=== PATIENT | male | born 1995 | race Caucasian/White ===

== ENCOUNTER 2017-09-24 21:45 | Emergency (ER) | payer MEDICAID, SELFPAY ==
[2017-09-24 21:46] VITALS: BP 156/98; PULSE 104; RESP 16; TEMP 36.4; O2SAT 96; BMI 31.9
--- NOTE | 2017-09-24 22:52 | NURSING ---
PTS NAME WAS CALLED MULTIPLE TIMES WITH NO RESPONSE. PT NO LONGER IN WAITING ROOM OR HALLWAY AREA
== END 2017-09-24 23:36 | disposition left against medical advice (07) ==
LOC: ED 23:34
PROVIDERS: Emergency Provider Emergency Medicine; Family Provider Family Medicine; PCP Family Medicine
DX: R69 Illness, unspecified (principal)

== ENCOUNTER 2017-10-06 20:59 | Emergency (ER) | payer MEDICAID, SELFPAY ==
[2017-10-06 21:00] VITALS: BP 143/95; PULSE 104; RESP 15; TEMP 36.6; BMI 31.9
--- NOTE | 2017-10-06 21:24 | ED.DCSUM_ITS ---
- ER Visit Summary Date of Service: 10/06/17 Chief Complaint: Dental pain History of Present Illness: The patient is a 22 M presents to the emergency department with dental pain. Patient had wisdom tooth extraction a few days ago. He states that he took his Vicodin as prescribed but is still having pain. He denies any trouble speaking or swallowing. He denies any fevers or chills. He cannot be seen again until Sunday. Physical Examination: No evidence of Merlin angina. He has no evidence of dry socket. Posterior oropharynx is widely patent. There is no abscess. Gums are nontender. Test Results: [] Emergency Department Course and Treatment: Patient has postoperative dental pain. There is no focal abscess or Merlin angina. I did review his OARRS ports. The patient be given 2 days of analgesics. He will be discharged home. Treatment Plan: [] Disposition: Charge Impression: Postoperative dental pain This note was generated with Intelligent Fingerprinting dictation software. It may contain incorrect words, spelling, and punctuation that were not noted in review of the chart prior to signing ED Disposition - Plan for ED Patient: Disposition: Home or Assisted Living Chief Complaint: Dental Instructions: ED Tooth Pain Prescriptions: Oxycodone HCl/Acetaminophen [Percocet 5/325] 1 tab PO Q6H PRN PRN 3 Days #8 tab PRN Reason: Pain Referrals: Cecilio Waldrop III, MD [Primary Care Provider] -
[2017-10-06 21:33] VITALS: BP 143/95; PULSE 104; RESP 15
== END 2017-10-06 21:34 | disposition home or self-care (01) ==
LOC: ED 21:27
PROVIDERS: Emergency Provider Emergency Medicine; Family Provider Family Medicine; PCP Family Medicine
DX: K08.89 Other specified disorders of teeth and supporting structures (principal); G89.18 Other acute postprocedural pain; F25.9 Schizoaffective disorder, unspecified
CPT/HCPCS: 99282

== ENCOUNTER 2017-10-08 20:03 | Emergency (ER) | payer MEDICAID, SELFPAY ==
[2017-10-08 20:04] VITALS: BP 141/84; PULSE 84; RESP 18; TEMP 36.8; O2SAT 97; BMI 33.5
--- NOTE | 2017-10-08 21:09 | ED.VISSUMM ---
- ER Visit Summary Date of Service: 10/08/17 Chief Complaint: Dental pain History of Present Illness: The patient is a 22 M who is postop day 5 from bilateral upper and lower wisdom teeth extraction. This is done by Dr. Mcclure at the [facility]. He was originally taking [place] but it did not help his pain. He was seen in the emergency room on Sunday given a prescription for Percocet he states that did not help his pain so today he left the message and did not get a call back so he comes to the emergency department tonight at 2100 looking for pain control. Plan is to go to the clinic tomorrow Physical Examination: Afebrile vital signs are stable Gen: Well-nourished well-developed Head: Normocephalic atraumatic Eyes: Perrl EOMI ENT: TMs clear no rhinorrhea moist mucous membranes no evidence of dry socket. There is no obvious abscess. No facial swelling. Neck: Supple no lymphadenopathy no JVD nontender CVS: Regular rate rhythm no murmurs normal S1-S2 Respiratory: No distress clear to auscultation bilaterally chest nontender Abdomen: Soft nontender nondistended normal bowel sounds no masses Back: Nontender Extremity: Nontender no edema Skin: Normal color no rash Neuro: alert orientated ?3 CN II-XII intact normal strength sensation reflexes gait cerebellar Psych: Patient angry and cursing Emergency Department Course and Treatment: Patient will be given a dose of Toradol. He is to use anti-inflammatories at home as it is clear that hydrocodone and oxycodone (narcotics) is not able to control his pain. He is to follow-up with [facility] as soon as possible. Impression: 1. Dental pain status post extraction This note was generated with Babelverse dictation software. It may contain incorrect words, spelling, and punctuation that were not noted in review of the chart prior to signing ED Disposition - Plan for ED Patient: Disposition: Home or Assisted Living Chief Complaint: Dental Instructions: [place] [facility] Referrals: Cecilio Waldrop III, MD [Primary Care Provider] - Bernarda Cook [NON-STAFF] - (as soon as possible)
[2017-10-08] MEDS: Ketorolac 60 MG/2 ML Vial IM (21:44)
[2017-10-08 22:14] VITALS: RESP 20
== END 2017-10-08 22:14 | disposition home or self-care (01) ==
PROVIDERS: Emergency Provider Emergency Medicine; Family Provider Family Medicine; PCP Family Medicine
DX: K08.89 Other specified disorders of teeth and supporting structures (principal); G89.18 Other acute postprocedural pain; F20.9 Schizophrenia, unspecified
CPT/HCPCS: 96372; 99282

== ENCOUNTER 2017-11-28 19:20 | Emergency (ER) | payer MEDICAID, SELFPAY ==
[2017-11-28 19:22] VITALS: BP 147/87; PULSE 81; RESP 16; TEMP 36.6; O2SAT 100; BMI 36.3
[2017-11-28 19:35] VITALS: BP 140/70; PULSE 75; RESP 14; O2SAT 98
--- NOTE | 2017-11-28 19:36 | ED.DCSUM_ITS ---
- ER Visit Summary Date of Service: 11/28/17 Chief Complaint: Back pain History of Present Illness: The patient is a 22 M who presents with back pain. It began earlier today. He complains of lower back pain which radiates down both legs. His pain is worse with bending. He does not recall any fall or injury. He denies any numbness tingling fever abdominal pain urinary retention or fecal incontinence. He took ibuprofen without relief. No fevers or history of IV drug abuse. Physical Examination: Afebrile vitals are stable Heart regular Lungs clear Abdomen soft Back has no reproducible tenderness normal inspection Normal strength and sensation of the lower extremities with 5 out of 5 dorsiflexion, plantarflexion, extensor hallucis longus, brisk capillary refill, normal sensation to light touch Test Results: Not indicated Emergency Department Course and Treatment: Patient was given prescriptions for naproxen and Flexeril. He was advised on supportive care. He understands to return for new or worsening symptoms and was instructed on specific signs and symptoms to monitor for. Treatment Plan: [] Disposition: Discharge Impression: Lumbosacral strain Lumbar radiculopathy This note was generated with [employer] dictation software. It may contain incorrect words, spelling, and punctuation that were not noted in review of the chart prior to signing ED Disposition - Plan for ED Patient: Chief Complaint: Back Referrals: Cecilio Waldrop III, MD [Primary Care Provider] -
--- NOTE | 2017-11-28 19:36 | ED.DEP ---
ED Disposition - Plan for ED Patient: Chief Complaint: Back Instructions: ED Sprain Strain Lumbar, ED Sciatica Prescriptions: Naproxen [Naprosyn] 500 mg PO BID #20 tab Cyclobenzaprine [Flexeril] 10 mg PO TID PRN #20 tab PRN Reason: Muscle Spasm Referrals: Cecilio Waldrop III, MD [Primary Care Provider] -
== END 2017-11-28 19:52 | disposition home or self-care (01) ==
PROVIDERS: Emergency Provider Emergency Medicine; Family Provider Family Medicine; PCP Family Medicine
DX: S39.012A Strain of muscle, fascia and tendon of lower back, initial encounter (principal); M54.16 Radiculopathy, lumbar region; X58.XXXA Exposure to other specified factors, initial encounter; Y93.9 Activity, unspecified; Y92.89 Other specified places as the place of occurrence of the external cause; F20.9 Schizophrenia, unspecified
CPT/HCPCS: 99282

== ENCOUNTER 2017-12-02 21:49 | Emergency (ER) | payer MEDICAID, SELFPAY ==
[2017-12-02 21:49] VITALS: BP 195/95; PULSE 94; RESP 14; TEMP 35.5; O2SAT 98; BMI 33.4
--- NOTE | 2017-12-02 22:20 | ED.DCSUM_ITS ---
- ER Visit Summary Date of Service: 12/02/17 Chief Complaint: [] Shoulder pain History of Present Illness: The patient is a 22 M [] complaining of left shoulder pain after lifting a sofa for a friend who is moving. Patient denies any injury. Reports several hours later had some pain in the scapular region. He reports he is here to make sure I am okay to go to work tomorrow. Denies any other complaints at this time. Physical Examination: [] Afebrile, vital signs stable. There is mild discomfort with range of motion of the left upper extremity in the left scapula. There is no discomfort over the left deltoid. Patient is neurovascularly intact distally throughout the left upper extremity. There is no gross deformity to the scapula. Test Results: [] None. Emergency Department Course and Treatment: [] Patient had a very benign presentation and did not warrant x-rays. He was offered a shot of Toradol and declined. He reports he will use NSAIDs at home and apply ice. Treatment Plan: [] Follow-up with PCP. Disposition: [] Discharge, stable. Impression: [] Scapula strain This note was generated with [employer] dictation software. It may contain incorrect words, spelling, and punctuation that were not noted in review of the chart prior to signing ED Disposition - Plan for ED Patient: Chief Complaint: Upper Extremity Injury Referrals: Cecilio Waldrop III, MD [Primary Care Provider] -
--- NOTE | 2017-12-02 22:20 | ED.DEP ---
ED Disposition - Plan for ED Patient: Disposition: Home or Assisted Living Chief Complaint: Upper Extremity Injury Instructions: ED Sprain Shoulder Referrals: Cecilio Waldrop III, MD [Primary Care Provider] -
== END 2017-12-02 22:47 | disposition home or self-care (01) ==
PROVIDERS: Emergency Provider Emergency Medicine; Family Provider Family Medicine; PCP Family Medicine
DX: S43.82XA Sprain of other specified parts of left shoulder girdle, initial encounter (principal); X50.0XXA Overexertion from strenuous movement or load, initial encounter; Y93.89 Activity, other specified; Y92.9 Unspecified place or not applicable; Y99.8 Other external cause status; F20.9 Schizophrenia, unspecified; Z72.0 Tobacco use
CPT/HCPCS: 99282

== ENCOUNTER 2018-01-15 00:49 | Emergency (ER) | payer MEDICAID, SELFPAY ==
[2018-01-15 00:50] VITALS: BP 147/86; PULSE 87; RESP 17; TEMP 37.6; O2SAT 97; BMI 33.4
--- NOTE | 2018-01-15 01:26 | ED.VISSUMM ---
- ER Visit Summary Date of Service: 01/15/18 Chief Complaint: [] Suicidal thoughts History of Present Illness: The patient is a 22 M stated he has been getting fluids fleeting suicidal thoughts for last week. He lives with his parents and recently moved back in with him with his fianc?e. He thinks is all situational factors. He has chronic mild depression. He does not have any plan to hurt himself. He is on Abilify. He saw a psychiatrist 3 weeks ago. He called the crisis center [facility] when he was talking with his fianc?e about it and they did not slate picker so he came in. He has overdosed remotely 2014 and is remorseful about that. He has no plan to hurt himself and states he wants to live for his fianc?e and child. Physical Examination: [] Vital signs reviewed General: Well-nourished well-developed Head: Normocephalic atraumatic Eyes: Pupils equal round and reactive to light extraocular movements intact ENT: TMs clear no hemotympanum no trauma Neck: Nontender full range of motion Cardiovascular: Regular rate rhythm no murmurs normal S1-S2 Respiratory: No distress clear to auscultation bilaterally chest nontender Abdomen: Soft nontender nondistended normal bowel sounds no masses Back: Nontender no CVA tenderness Extremities: Nontender active range of motion ?4 extremities no trauma Skin: Normal color no trauma Neuro alert oriented cranial nerves II through XII intact normal strength sensation reflexes Test Results: [] Emergency Department Course and Treatment: [] I had a long talk with the patient and his fianc?e. He does not think he would actually do anything to hurt himself. His fianc?e and him feel that he is safe. They do not want to be admitted. Therefore I will not talk to the crisis counselor and bring them in the middle the night. He is can call psychiatrist tomorrow. He will return if his thoughts worsen or he has a plan and thinks he might hurt himself. Treatment Plan: [] Disposition: [] Impression: [] Fleeting suicidal thoughts This note was generated with Little1ation software. It may contain incorrect words, spelling, and punctuation that were not noted in review of the chart prior to signing ED Disposition - Plan for ED Patient: Chief Complaint: Suicidal Referrals: Cecilio Waldrop III, MD [Primary Care Provider] -
--- NOTE | 2018-01-15 01:28 | ED.DEP ---
ED Disposition - Plan for ED Patient: Disposition: Home or Assisted Living Chief Complaint: Suicidal Instructions: ED Depression Referrals: Cecilio Waldrop III, MD [Primary Care Provider] - Doctor,Your [STAFF PHYSICIAN] -
== END 2018-01-15 01:31 | disposition home or self-care (01) ==
PROVIDERS: Emergency Provider Emergency Medicine; Family Provider Family Medicine; PCP Family Medicine
DX: R45.851 Suicidal ideations (principal); F32.9 Major depressive disorder, single episode, unspecified; F20.9 Schizophrenia, unspecified; Z72.0 Tobacco use
CPT/HCPCS: 99285

== ENCOUNTER 2018-02-01 01:46 | Emergency (ER) | payer MEDICAID, SELFPAY ==
--- NOTE | 2018-02-01 01:46 | DT_ITS ---
This patient was seen during an EMR downtime January 28, 2018 - February 04, 2018. This patient may have a combination of paper and electronic documentation or all paper documentation. All documentation is viewable within the e-chart portion of [facility] for each patient visit.
--- NOTE | 2018-02-01 12:33 | EKG12_ITS ---
Test Reason : [facility] Blood Pressure : / mmHG Vent. Rate : 110 BPM Atrial Rate : 110 BPM P-R Int : 152 ms QRS Dur : 096 ms QT Int : 326 ms P-R-T Axes : 054 028 004 degrees QTc Int : 441 ms Sinus tachycardia Otherwise normal ECG Confirmed by ISAAC ADAMSON, RADHA ([id number]), offline editor RANDAL SIMON ([id number]) on 02/06/2018 5:37:21 PM Referred By: Qasim Encarnacion Confirmed By:RADHA GRAY MD
[2018-02-04 09:14] LABS: Bacteria 0 SEEN /hpf (None Seen); Mucous, Urine 0 SEEN /hpf (<or=2+); Red Blood Cells-Urine 0 SEEN /hpf (0-5); Squamous Epithelial Cells - UA 0 SEEN /hpf (0-5); White Blood Cells 0 SEEN /hpf (0-5)
[2018-02-04 09:20] LABS: Color, Urine Straw (Yellow); Glucose, Dipstick NEGATIVE (Normal); Ketone-Dipstick Negative (Negative); Leukocyte Esterase-Dipstick Negative /ul (Negative); Nitrite-Dipstick Negative (Negative); Occult Blood-Urine Negative /ul (Negative); Protein-Dipstick Negative (Negative); Urine Bilirubin Dipstick Negative (Negative); Urine Clarity Clear (Clear); Urine Urobilinogen Normal (Normal)
[2018-02-04 11:06] LABS: Amphetamine Urine VISTA NEGATIVE (<1000 ng/mL); Barbiturate Urine VISTA NEGATIVE (< 200 ng/mL); Benzodiazepine Urine VISTA NEGATIVE (< 200 ng/mL); Cocaine Urine VISTA NEGATIVE (< 300 ng/mL); Ecstacy Urine VISTA NEGATIVE (< 500 ng/mL); Methadone Urine VISTA NEGATIVE (< 300 ng/mL); PCP Urine VISTA NEGATIVE (< 25 ng/mL); THC Urine VISTA POSITIVE (< 50 ng/mL)
[2018-02-04 17:24] LABS: Hematocrit 49.4 % (40-54); Hemoglobin 16.6 g/dl (13.0-16.5); Mean Corp Hgb Conc 33.6 g/gl (32-36); Mean Corpuscular Hgb 28.1 pg (27.0-32.0); Mean Corpuscular Volume 83.6 fL (80-94); Red Blood Count 5.91 M/mm3 (4.6-6.2); White Blood Count 8.4 K/mm3 (4.4-11.0)
[2018-02-04 17:25] LABS: Absolute Neutrophil Count 4.8 X10^3/uL (2.0-7.7); Basophil# 0.03 X10^3/uL; Basophil% 0.4 % (0-1); Eosinophil# 0.14 X10^3/uL; Eosinophils% 1.7 % (0-5); Lymphocyte % 33.3 % (19-41); Mean Platelet Vol. 10.1 fl (6.2-12.0); Monocyte# 0.61 X10^3/uL; Monocyte% 7.3 % (0-10); Neutrophil # 4.81 X10^3/uL (2.7-7.7); Neutrophil % 57.2 % (47-70); POSITIVE COUNT NO; POSITIVE DIFFERENTIAL NO; POSITIVE MORPHOLOGY NO; Platelet Count 221 K/mm3 (150-450); RBC Distribution Width SD 39.5 fl (35.1-43.9)
== END 2018-02-01 22:00 | disposition short-term general hospital (02) ==
PROVIDERS: Emergency Provider Emergency Medicine; Family Provider Family Medicine; PCP Family Medicine
DX: R45.851 Suicidal ideations (principal); F32.9 Major depressive disorder, single episode, unspecified; F41.9 Anxiety disorder, unspecified; F20.9 Schizophrenia, unspecified; F12.90 Cannabis use, unspecified, uncomplicated; Z72.0 Tobacco use; Z79.899 Other long term (current) drug therapy
CPT/HCPCS: 36415; 80307; 80320; 81001; 85025; 93005; 99285; G0480

== ENCOUNTER → 2018-06-06 20:51 | Emergency (ER) | payer MEDICAID, SELFPAY ==
[2018-06-06 20:53] VITALS: BP 141/84; PULSE 95; RESP 18; TEMP 36.6; O2SAT 95; BMI 29.6
--- NOTE | 2018-06-06 21:57 | ED.RN ---
when going to start patient's IV- pt asked to use bathroom first. then pt never returned to room. physician saw pt and had placed orders. urine was sent. no inclination that pt would leave.
--- NOTE | 2018-06-06 22:02 | ED.VISSUMM ---
- ER Visit Summary Date of Service: 06/06/18 Chief Complaint: Patient presents with left-sided abdominal pain. History of Present Illness: The patient is a 23 M who reports nausea for months. He has had vomiting for the last 2 days. Upon further questioning was determined the patient recently resumed drinking. When asked what led to him drinking again since he had been abstinent for several months he stated I hung out with the wrong crowd . He denies drug use. He denies fever, chills night sweats. He denies ocular, visual or auditory symptoms. He denies cardiac or respiratory symptoms. He denies black or maroon stool. He denies blood or coffee ground emesis. He denies prior history of pancreatitis. He denies change in color his urine or blood in his urine. He has no other complaints. Physical Examination: Vital signs noted and blood pressure is slightly elevated 141/84. Head is atraumatic normocephalic. Pupils are equal round reactive. Extraocular muscles are intact. TMs are pearly white with landmarks noted. Nares patent with no drainage. Posterior pharynx without erythema or exudate. Uvula is midline. There is no dysphonia or dysphasia. Trachea is midline. There is no stridor with auscultation of the neck. Heart is regular without murmur, gallop or rub. S1 and S2 are normal. Lungs are clear to auscultation with good movement of air bilaterally. Abdomen is remarkable for tenderness on the left side left upper quadrant greater than left lower. There is no peritoneal findings. There is no CVA tenderness. There is no umbilical or inguinal hernia. Neuro exam is nonfocal. Test Results: Not drawn Emergency Department Course and Treatment: Blood work was ordered and urinalysis. I was informed at 2155 that patient left. His nurse informed me that he asked to use the restroom prior to establishment of IV. She waited 10 minutes and checked on him and apparently he left. Treatment Plan: Patient left prior to completion of care. Disposition: Left prior to completion of care Impression: 1. Left-sided abdominal pain unknown etiology 2. Nausea and vomiting 3. Recent alcohol use This note was generated with Pinnacle Holdingsation software. It may contain incorrect words, spelling, and punctuation that were not noted in review of the chart prior to signing ED Disposition - Plan for ED Patient: Chief Complaint: Nausea/Vomiting Referrals: Cecilio Waldrop III, MD [Primary Care Provider] -
== END | disposition home or self-care (01) ==
PROVIDERS: Emergency Provider Emergency Medicine; Family Provider Family Medicine; PCP Family Medicine
DX: R10.12 Left upper quadrant pain (principal); R10.32 Left lower quadrant pain; R11.2 Nausea with vomiting, unspecified; Z72.89 Other problems related to lifestyle; E66.9 Obesity, unspecified; Z68.29 Body mass index [BMI] 29.0-29.9, adult; Z53.21 Procedure and treatment not carried out due to patient leaving prior to being seen by health care provider
CPT/HCPCS: 99282; A4216

== ENCOUNTER 2018-06-11 22:06 | Emergency (ER) | payer MEDICAID, SELFPAY ==
[2018-06-11 22:07] VITALS: BP 134/76; PULSE 85; RESP 18; TEMP 36.8; O2SAT 99; BMI 32.1
--- NOTE | 2018-06-11 22:46 | CT_ITS ---
STUDY: CT ABDOMEN AND PELVIS WITHOUT CONTRAST REASON FOR EXAM: Male, 23 years old. Sided abdominal pain one week RADIATION DOSAGE (If Supplied By Facility): CTDIvol = ( 12.34 ) mGy, DLP = ( 678.44 ) mGycm TECHNIQUE: Transaxial images were obtained from the dome of the diaphragm to the symphysis pubis without oral contrast, and without intravenous contrast. Sagittal and coronal images were reconstructed. Individualized dose optimization techniques were used for this CT. COMPARISON: None. FINDINGS: The visualized lung bases are unremarkable. The visualized portions of the heart are within normal limits. Normal liver. Normal gallbladder and extrahepatic biliary system. Normal spleen. Normal pancreas. Normal bilateral adrenal glands. Normal right kidney. There is a small focus of stone or stones within the lower Pole of the left kidney measuring 2.9 mm. There is minimally distended appearance of the left ureter. There may be a punctate stone in the distal left ureter. The bladder is partially decompressed the wall is mildly thickened. Normal visualized stomach. There are mildly distended loops of small bowel in the left upper quadrant with multiple undigested tablets. There is moderate stool in the colon. The appendix is visualized and appears normal. Normal abdominal aorta. Normal inferior vena cava. There a few borderline left-sided retroperitoneal lymph nodes measuring up to 1.3 cm. There are few nonspecific small mesenteric lymph nodes. Bladder wall appears thickened measuring up to 8 mm Normal visualized prostate gland. There is a small umbilical hernia containing fat. Normal osseous structures. CT/Abdomen/Pelvis without Cont IMPRESSION: Mild focal ileus left upper quadrant associated with undigested tablets. Constipation no evidence of diverticulosis or diverticulitis. Left-sided renal stones. Minimal left sided ureteral distention. There may be a punctate stone in the left side of the bladder versus artifact. See image #[id number] of the transverse views. There is wall thickening of the bladder consistent with cystitis. Electronically Signed: Marleni Brown MD at 0:47 EDT Tel , Service support ,
[2018-06-11] MEDS: Ondansetron 4 MG/2 ML Vial IV (23:08)
[2018-06-11] MEDS: Morphine 4 MG/ML Syringe IV (23:09)
[2018-06-11 23:11] LABS: Bacteria 0 SEEN /hpf (None Seen); Mucous, Urine 0 SEEN /hpf (<or=2+); Squamous Epithelial Cells - UA 0 SEEN /hpf (0-5)
[2018-06-11 23:14] LABS: Color, Urine Straw (Yellow); Glucose, Dipstick Normal (Normal); Ketone-Dipstick Negative (Negative); Leukocyte Esterase-Dipstick Negative /ul (Negative); Nitrite-Dipstick Negative (Negative); Occult Blood-Urine Negative /ul (Negative); Protein-Dipstick Negative (Negative); Urine Bilirubin Dipstick Negative (Negative); Urine Clarity Clear (Clear); Urine Urobilinogen Normal (Normal)
[2018-06-11 23:16] LABS: Absolute Lymphocyte Count 2.73 X10^3/ul (0.83-4.51); Absolute Neutrophil Count 5.7 X10^3/uL (2.0-7.7); Basophil# 0.03 X10^3/uL; Basophil% 0.3 % (0-1); Eosinophil# 0.22 X10^3/uL; Eosinophils% 2.3 % (0-5); Hematocrit 46.8 % (40-54); Hemoglobin 16.1 g/dl (13.0-16.5); Lymphocyte # 2.73 X10^3/ul (4.0); Mean Corp Hgb Conc 34.4 g/gl (32-36); Mean Corpuscular Hgb 28.3 pg (27.0-32.0); Mean Corpuscular Volume 82.2 fL (80-94); Mean Platelet Vol. 10.7 fl (6.2-12.0); Monocyte% 10.3 % (0-10); Neutrophil # 5.74 X10^3/uL (2.7-7.7); Neutrophil % 58.8 % (47-70); POSITIVE COUNT NO; POSITIVE DIFFERENTIAL NO; POSITIVE MORPHOLOGY NO; Platelet Count 257 K/mm3 (150-450); RBC Distribution Width CV 13.8 % (11.6-14.6); RBC Distribution Width SD 41.3 fl (35.1-43.9); Red Blood Count 5.69 M/mm3 (4.6-6.2); White Blood Count 9.8 K/mm3 (4.4-11.0)
[2018-06-11 23:21] LABS: Red Blood Cells-Urine 0-5 SEEN /hpf (0-5); White Blood Cells 0-5 SEEN /hpf (0-5)
[2018-06-12 00:20] LABS: Anion Gap 7 (5-15); BUN 13 mg/dL (7-18); BUN/Creat Ratio 13.5 RATIO (10-20); Chloride 106 mmol/L (98-107); Creatinine, Serum 0.96 mg/dL (0.70-1.30); EST Glomerular Filtration Rate 103 mL/min (>60); Est Glom Filt Rate - Afr Amer 124 mL/min (>60); Estimated Creatinine Clearance 115.78 ml/min; Glucose 94 mg/dL (74-106); Potassium 3.7 mmol/L (3.5-5.1); Sodium Level 139 mmol/L (136-145)
--- NOTE | 2018-06-12 00:53 | ED.VISSUMM ---
- ER Visit Summary Date of Service: 06/12/18 Chief Complaint: [Abdominal pain] History of Present Illness: The patient is a 23 M [presents with abdominal pain that started about a week ago. Patient states pains been off and on initially has been more continuous over the last 24 hours. Patient's had some nausea and vomiting x2 today. Patient states he is having normal bowel movements. He denies any blood in his stool or black tarry stools. He denies any fever. He denies urinary symptoms. He is never had pain like this before.] Physical Examination: [HEENT-PERRLA, EOMI. Cranial nerves II through XII grossly intact. TMs clear. Mucous membranes moist. No adenopathy. Cardiovascular-regular rate and rhythm without murmur or ectopy Lungs-clear to auscultation, chest wall stable without crepitus or subcu emphysema Abdomen-normoactive bowel sounds, soft. Patient has tenderness to palpation over left lower quadrant and suprapubic region. There is no rebound, rigidity, or perineal signs. Patient has some mild CVA tenderness on the left. Extremities-intact ?4, normal range of motion, normal pulses, atraumatic] Test Results: [CBC with differential obtained showed a white count of 9.8, hemoglobin 16, hematocrit 97, platelets 257. Chemistries were normal. Urinalysis was normal. CT flank showed mild ileus, left-sided ureteral distention that is mild with a left sided small stone noted in the bladder. There was some bladder wall thickening.] Emergency Department Course and Treatment: [Patient was medicated with Zofran and morphine. He had good pain relief. He was able to tolerate p.o. fluids.] Treatment Plan: [Patient will be started on Naprosyn and Zofran. He will be given referral to follow-up with urology application penetration tester.] Disposition: [Discharged home stable condition] Impression: [Abdominal pain Past kidney stone] This note was generated with mimoOn dictation software. It may contain incorrect words, spelling, and punctuation that were not noted in review of the chart prior to signing ED Disposition - Plan for ED Patient: Chief Complaint: Abd Pain Referrals: Cecilio Waldrop III, MD [Primary Care Provider] -
--- NOTE | 2018-06-12 00:55 | ED.DEP ---
ED Disposition - Plan for ED Patient: Chief Complaint: Abd Pain Instructions: ED Abdominal Pain Unkn Cause, ED Stone Renal Passed Prescriptions: Ondansetron [Zofran Odt] 4 mg PO Q8H PRN PRN #10 tab PRN Reason: Nausea Naproxen [Naprosyn] 500 mg PO BID PRN #20 tab Referrals: Cecilio Waldrop III, MD [Primary Care Provider] - Juan Pablo Pak MD [STAFF PHYSICIAN] - 3-5 Days
[2018-06-12] MEDS: Ondansetron ODT 4 MG Tablet PO (01:06)
[2018-06-12 01:12] VITALS: BP 139/86; PULSE 84; RESP 16; O2SAT 100
--- NOTE | 2018-06-12 01:12 | ED.RN ---
THIS NURSE REVIEWED D/C INSTRUCTIONS WITH PT. PT VERBALIZED UNDERSTANDING OF INSTRUCTIONS. IV D/C. IV CATHETER INTACT. PT TOLERATED WELL. EXCLINETTE GIVEN TO PT. PT DENIES FURTHER NEEDS OR QUESTIONS AT THIS TIME. PT AMBULATES FROM ROOM ON OWN WITHOUT ASSISTANCE FROM STAFF
--- NOTE | 2018-06-12 02:21 | ED.DEP ---
ED Disposition - Plan for ED Patient: Disposition: Home or Assisted Living Chief Complaint: Abd Pain Instructions: ED Abdominal Pain Unkn Cause, ED Stone Renal Passed Prescriptions: Hydrocodone Bitart/Apap 5-325 [[place] 5MG-325MG] 1 tab PO Q4H PRN PRN 2 Days #10 tab PRN Reason: Pain Ondansetron [Zofran Odt] 4 mg PO Q8H PRN PRN #10 tab PRN Reason: Nausea Naproxen [Naprosyn] 500 mg PO BID PRN #20 tab Referrals: Cecilio Waldrop III, MD [Primary Care Provider] - Juan Pablo Pak MD [STAFF PHYSICIAN] - 3-5 Days
== END 2018-06-12 01:13 | disposition home or self-care (01) ==
LOC: ED 06-12 00:21
PROVIDERS: Emergency Provider Emergency Medicine; Family Provider Family Medicine; PCP Family Medicine
DX: N21.0 Calculus in bladder (principal); F12.99 Cannabis use, unspecified with unspecified cannabis-induced disorder; Z72.0 Tobacco use; Z79.899 Other long term (current) drug therapy
CPT/HCPCS: 36415; 74176; 80048; 81001; 85025; 96374; 96375; 99285; A4216; J2405

== ENCOUNTER 2018-06-17 20:17 | Emergency (ER) | payer MEDICAID, SELFPAY ==
[2018-06-17 20:18] VITALS: BP 133/72; PULSE 92; RESP 15; TEMP 36.3; O2SAT 97; BMI 32.1
--- NOTE | 2018-06-17 20:40 | ED.VISSUMM ---
- ER Visit Summary Date of Service: 06/17/18 Chief Complaint: Left flank pain History of Present Illness: The patient is a 23 M history of bipolar and anxiety and depression. No prior stones. No prior UTI. No prior STD. Patient states he has had dysuria for approximately 2 weeks. Denies any gross hematuria. No penile discharge. Denies any abdominal trauma. Was seen in the ER 5-6 days ago. Had a completely normal UA at that time. Denies any fever or back pain. Physical Examination: Well-appearing young male. Vital signs are stable he is afebrile. He does not look septic toxic. He is in no distress. H EENT exam unremarkable. Neck nontender no lymphadenopathy. Lungs clear to auscultation bilaterally. Heart regular rate and rhythm no murmur. Abdomen soft. Nondistended. Normal bowel sounds. No peritoneal signs. No significant tenderness over the abdominal surface. Both the right upper and right lower quadrant unremarkable. No signs of trauma. Back nontender no CVA tenderness. Patient is moving all 4 extremities. Neurovascularly intact. Neurologically is awake and alert with no focal motor deficits. Test Results: Patient's urine grossly looks completely clear. He had a negative UA 5-6 days ago. With no blood nor white cells nor bacteria. I do not feel that needs to be repeated. Emergency Department Course and Treatment: Discharged home. Tylenol and/or Motrin for pain. Follow-up with his primary care physician if not improving. Treatment Plan: Follow-up with PCP if not improving. Disposition: Discharge Impression: Acute left flank pain of uncertain etiology. History of bipolar disorder and anxiety This note was generated with Pro[employer]Star dictation software. It may contain incorrect words, spelling, and punctuation that were not noted in review of the chart prior to signing ED Disposition - Plan for ED Patient: Chief Complaint: Flank Pain Referrals: Cecilio Waldrop III, MD [Primary Care Provider] -
--- NOTE | 2018-06-17 20:42 | ED.DEP ---
ED Disposition - Plan for ED Patient: Disposition: Home or Assisted Living Chief Complaint: Flank Pain Instructions: ED Flank Pain Uncertain Cause Referrals: Cecilio Waldrop III, MD [Primary Care Provider] - 3-5 Days if not improving Additional Instructions: Plenty of fluids and rest. Tylenol Motrin for pain.
[2018-06-17 20:58] VITALS: PULSE 75; RESP 18
== END 2018-06-17 20:58 | disposition home or self-care (01) ==
PROVIDERS: Emergency Provider Emergency Medicine; Family Provider Family Medicine; PCP Family Medicine
DX: R10.9 Unspecified abdominal pain (principal); F31.9 Bipolar disorder, unspecified; F41.9 Anxiety disorder, unspecified; Z72.0 Tobacco use
CPT/HCPCS: 99284

== ENCOUNTER 2018-07-03 16:04 | Inpatient (IN) | payer MEDICAID, SELFPAY ==
[2018-07-03] VITALS (16 sets, daily range): BP systolic 103–135; BP diastolic 45–87; PULSE 55–92; RESP 16–20; TEMP 36–36.4; O2SAT 96–99; BMI 30.4; BMI 31.0; BMI 31.1
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
--- NOTE | 2018-07-03 16:54 | NURSING ---
DR MARR TALKED TO DR RUGGIERO. DR PATTON WILL CALL HER BACK WHEN LABS ARE BACK.
[2018-07-03 17:03] LABS: Anion Gap 8 (5-15); BUN 12 mg/dL (7-18); Calcium,Total 8.5 mg/dL (8.5-10.1); Chloride 105 mmol/L (98-107); EST Glomerular Filtration Rate 98 mL/min (>60); Est Glom Filt Rate - Afr Amer 119 mL/min (>60); Estimated Creatinine Clearance 111.15 ml/min; Glucose 113 mg/dL (74-106); Potassium 3.6 mmol/L (3.5-5.1); Sodium Level 140 mmol/L (136-145)
[2018-07-03 17:10] LABS: Absolute Lymphocyte Count 1.91 X10^3/ul (0.83-4.51); Absolute Neutrophil Count 8.9 X10^3/uL (2.0-7.7); Basophil# 0.03 X10^3/uL; Basophil% 0.3 % (0-1); Eosinophil# 0.18 X10^3/uL; Eosinophils% 1.5 % (0-5); Hematocrit 47.4 % (40-54); Hemoglobin 15.7 g/dl (13.0-16.5); Lymphocyte # 1.91 X10^3/ul (4.0); Mean Corp Hgb Conc 33.1 g/gl (32-36); Mean Corpuscular Volume 84.5 fL (80-94); Mean Platelet Vol. 10.3 fl (6.2-12.0); Monocyte# 0.93 X10^3/uL; Monocyte% 7.8 % (0-10); Neutrophil % 74.2 % (47-70); Platelet Count 233 K/mm3 (150-450); RBC Distribution Width CV 13.9 % (11.6-14.6); RBC Distribution Width SD 42.9 fl (35.1-43.9); Red Blood Count 5.61 M/mm3 (4.6-6.2)
[2018-07-03] MEDS: Activated Charcoal 50 GM/240 ML BOT PO (17:11)
[2018-07-03 17:12] LABS: POSITIVE COUNT NO; POSITIVE DIFFERENTIAL NO; POSITIVE MORPHOLOGY NO
[2018-07-03 17:15] LABS: Amphetamine Urine VISTA NEGATIVE (<1000 ng/mL); Barbiturate Urine VISTA NEGATIVE (< 200 ng/mL); Benzodiazepine Urine VISTA NEGATIVE (< 200 ng/mL); Cocaine Urine VISTA NEGATIVE (< 300 ng/mL); Ecstacy Urine VISTA NEGATIVE (< 500 ng/mL); Methadone Urine VISTA NEGATIVE (< 300 ng/mL); PCP Urine VISTA NEGATIVE (< 25 ng/mL); THC Urine VISTA POSITIVE (< 50 ng/mL)
[2018-07-03 17:18] LABS: Vista UDS pH Range 6
[2018-07-03 17:27] LABS: Alcohol, Blood (Medical)-Serum < 3.0 mg/dL
[2018-07-03 17:31] LABS: AST(SGOT) 29 U/L (15-37); Alanine Aminotransfer ALT/SGPT 44 U/L (16-61); Albumin, Serum 4.1 g/dL (3.2-5.0); Alkaline Phosphatase 121 U/L (45-117); Bilirubin, Direct 0.12 mg/dL (0.00-0.30); Globulin 3.4 g/dL (2.2-4.2); Protein, Total 7.5 g/dL (6.4-8.2)
--- NOTE | 2018-07-03 17:34 | EKG12_ITS ---
Test Reason : MENTAL HEALTH Blood Pressure : / mmHG Vent. Rate : 075 BPM Atrial Rate : 075 BPM P-R Int : 174 ms QRS Dur : 100 ms QT Int : 398 ms P-R-T Axes : 059 047 014 degrees QTc Int : 444 ms Normal sinus rhythm Possible Left atrial enlargement Borderline ECG Confirmed by ISAAC ADAMSON, RADHA ([id number]), mapping editor RANDAL SIMON ([id number] on 07/04/2018 3:46:56 PM Referred By: Caridad Dsouza Confirmed By:RADHA GRAY MD
--- NOTE | 2018-07-03 17:50 | NURSING ---
ICU WHITE OD MULTIPLE DRUGS, DEPRESSION, AND SI
--- NOTE | 2018-07-03 18:10 | NURSING ---
DR RUGGIERO FOR DR PATTON
--- NOTE | 2018-07-03 18:15 | HP.PCM_ITS ---
Problem List (1) Suicide attempt by drug ingestion Status: Acute (2) Major depression Status: Chronic (3) Alcohol abuse Status: Chronic (4) Nicotine abuse Status: Chronic (5) Marijuana abuse Status: Chronic History of Present Illness Date of Admission: 07/03/18 Chief Complaint: suicide attempt The patient is a 23 year old M with a history of major depression with a prior suicide attempt in 2014 where he scription medications was subsequently hospitalized at inpatient psych unit, who presents to the emergency room after calling the rescue squad after taking an overdose of medications intentionally. He states that he took 2 months worth of his prescribed psychiatric medications including campral, BuSpar, Abilify. Emergency squad went to his house and brought him to the emergency room. Reportedly within 60 minutes he had received activated charcoal. He appears comfortable in bed. He is somewhat lethargic. He has mild nausea, no vomiting. He is hungry and wants to eat. He is mildly LH. He has no CP, SOB, BOJORQUEZ, double or blurry vision, no numbness or tingling in the extremities. [facility] [place] and sees a psychologist and psychiatrist (Dr. Gardner). He recently had his medication doses increased. He takes compral for alcohol abuse, however he continues to drink. He states that he can go days or weeks without drinking without issues, however yesterday he drank 1/2 bottle of vodka, and typically drinks 4-12 beers per day. He occasionally smokes marijuana. He uses chewing tobacco daily. [] Past Medical History Past Medical History (Chronic Problems): Chronic Problems Alcohol abuse (Chronic) Major depression (Chronic) Nicotine abuse (Chronic) Marijuana abuse (Chronic) Allergies bee venom protein (honey bee) Allergy (Verified 07/03/18 16:09) Anaphylaxis Home Medications: Ambulatory Orders Medication Instructions Recorded Aripiprazole [Abilify] 10 mg PO DAILY 03/13/17 Acamprosate Calcium 666 mg PO TID 06/11/18 busPIRone [Buspar] 20 mg PO TID 06/11/18 Naproxen [Naprosyn] 500 mg PO BID PRN #20 tab 06/12/18 Surgical History: tonsillectomy Psychiatric History: Depression, Prior suicide attempt Lives: Alone Smoking Status: Never smoker Tobacco Use: Chew Alcohol: Heavy Drugs: Marijuana - *Family History Maternal History Items: Unknown Paternal History Items: No pertinent history Review of Systems Constitutional: Denies: Chills, Fever, Weight Change HEENT: Denies: Head Aches, Sinus Congestion, Sinus Drainage Cardiovascular: Denies: Chest Pain, Palpitations Respiratory: Denies: Cough, Shortness of breath at rest, Sputum production Gastrointestinal: Denies: Abdominal Pain, Nausea, Vomiting Genitourinary: Denies: Dysuria Musculoskeletal: Denies: Joint Pain, Joint Tenderness Skin: Denies: Rash, Wounds Neurological: Denies: Numbness, Tingling, Focal weakness Psychiatric: Denies: Anxiety, Depression, Homicidal Ideations, Suicidal Ideations Hematologic/ Lymphatic: Denies: Easy Bruising, Easy Bleeding VTE Information - Inpt Only VTE Present on Admission: No VTE Mechan Device Prophylaxis: None VTE Pharm Prophylaxis ordered?: No Reason prophylaxis not ordered:: Procedure Not Indicated Patient Problems: Active and Suspected Problems Suicide attempt by drug ingestion (Acute) - Physical Exam General: Alert, Oriented x3, Cooperative HEENT: Atraumatic, PERRLA, EOMI, Normocephalic, - - difficulty tracking with eyes, difficulty keeping eyes open Neck: Supple, No JVD, Negative Carotid Bruits Lungs: Clear to auscultation, Normal air movement Cardiovascular: Regular rate, No murmurs Abdomen: Bowel Sounds Present, Soft, Non Tender Extremities: No edema, Capillary Refill Less than 3 Seconds Skin: No rashes, No breakdown Musculoskeletal: No Tenderness to Palpation of Joints or Extremities Neurological: Cranial nerves II-XII grossly intact Psych/Mental Status: Normal Affect, Appropriate Vital Signs Temp Pulse Resp BP Pulse Ox 97.6 F L 92 16 135/87 H 98 07/03/18 16:05 07/03/18 17:56 07/03/18 17:56 07/03/18 17:56 07/03/18 17:56 Oxygen Delivery Method Room Air Weight: 200 lb Body Mass Index (BMI) 30.4 Laboratory Tests Past 24 Hrs 07/03/18 07/03/18 07/03/18 16:30 16:30 16:30 WBC 12.0 H RBC 5.61 Hgb 15.7 Hct 47.4 MCV 84.5 MCH 28.0 MCHC 33.1 RDW 13.9 RDW Differential 42.9 Plt Count 233 MPV 10.3 Immature Gran % (Auto) 0.200 Neut % (Auto) 74.2 H Lymph % (Auto) 16.0 L [place] % (Auto) 7.8 Eos % (Auto) 1.5 Baso % (Auto) 0.3 Absolute Neuts (auto) 8.9 H Absolute Lymphs (auto) 1.91 Total Counted Not Reportable Sodium 140 Potassium 3.6 Chloride 105 Carbon Dioxide 27.0 Anion Gap 8 BUN 12 Creatinine 1.00 Estim Creat Clear Calc 111.15 Est GFR (MDRD) Af Amer 119 Est GFR (MDRD) Non-Af 98 BUN/Creatinine Ratio 12.0 Glucose 113 H Calcium 8.5 Total Bilirubin Direct Bilirubin AST ALT Alkaline Phosphatase Total Protein Albumin Globulin Urine Opiates Screen Urine Methadone Screen Ur Barbiturates Screen Ur Phencyclidine Scrn Ur Amphetamines Screen U Methamphetamin-MDMA U Benzodiazepines Scrn Urine Cocaine Screen U Cannabinoids Screen Ur Drug Screen Comment Ethyl Alcohol < 3.0 07/03/18 07/03/18 16:30 16:34 WBC RBC Hgb Hct MCV MCH MCHC RDW RDW Differential Plt Count MPV Immature Gran % (Auto) Neut % (Auto) Lymph % (Auto) [place] % (Auto) Eos % (Auto) Baso % (Auto) Absolute Neuts (auto) Absolute Lymphs (auto) Total Counted Sodium Potassium Chloride Carbon Dioxide Anion Gap BUN Creatinine Estim Creat Clear Calc Est GFR (MDRD) Af Amer Est GFR (MDRD) Non-Af BUN/Creatinine Ratio Glucose Calcium Total Bilirubin 0.40 Direct Bilirubin 0.12 AST 29 ALT 44 Alkaline Phosphatase 121 H Total Protein 7.5 Albumin 4.1 Globulin 3.4 Urine Opiates Screen NEGATIVE Urine Methadone Screen NEGATIVE Ur Barbiturates Screen NEGATIVE Ur Phencyclidine Scrn NEGATIVE Ur Amphetamines Screen NEGATIVE U Methamphetamin-MDMA NEGATIVE U Benzodiazepines Scrn NEGATIVE Urine Cocaine Screen NEGATIVE U Cannabinoids Screen POSITIVE H Ur Drug Screen Comment Ethyl Alcohol Assessment/Plan All Active Problems Suicide attempt by drug ingestion (Acute) 1. Suicide attempt 2/2 major depression with Intentional prescription drug overdose - took 60 days worth of campral (MANNY activity), buspar, and abilify. Pt somewhat lethargic, mild nausea. Received Activated Charcoal in ER. Baseline EKG pending. [facility] [place]. Has weekly counselling. Prior suicide attempt with Rx pills 2014. EtOH level negative. Tox screen with marijuana which he admits to using. -Consult to crisis -pt admitted to ICU -monitor for VEHICLE CHECK IN CLERK depression 2. Alcohol abuse - EtOH neg. drinks 4-12 beers daily, last drink was 1/2 bottle vokda yesterday. Taking campral for alcohol craving, and drinking regardless. This should be discontinued at DC. Maintain CIWA protocol and seizure precautions. Check mag/phos, provide thiamine/folate. 3. Polysubstance abuse - also abusing nicotine (chew) and marijuana. Advise cessation. Patch if desired. DVT ppx: early ambulation DC planning: needs inpatient psychiatric eval This patient was seen by Jayy Daily PA-C under the supervision of Doctor Meet.
[2018-07-03] MEDS: 0.9% Normal Saline 1,000 ML 999 ML IV ×2 (19:54→21:01)
[2018-07-03 20:05] LABS: Magnesium 2.1 mg/dL (1.6-2.6); Phosphorus 3.3 mg/dL (2.5-4.9)
[2018-07-03] MEDS: Thiamine Hydrochloride 100 MG Tablet PO (21:29)
[2018-07-03] MEDS: Folic Acid 1 MG Tablet PO (21:30)
[2018-07-03] MEDS: Multivitamins,Ther W-Minerals Tablet 1 TABLET PO (21:30)
[2018-07-03] MEDS: 0.9% Normal Saline 1,000 ML 150 ML IV (22:05)
[2018-07-04] VITALS (14 sets, daily range): BP systolic 116–135; BP diastolic 65–87; PULSE 43–90; RESP 12–18; TEMP 35.9–37.2; O2SAT 99–100
[2018-07-04] MEDS: 0.9% Normal Saline 1,000 ML 150 ML IV ×2 (04:34→11:23)
[2018-07-04 04:46] LABS: Hematocrit 44.5 % (40-54); Hemoglobin 14.2 g/dl (13.0-16.5); Mean Corp Hgb Conc 31.9 g/gl (32-36); Mean Corpuscular Hgb 27.5 pg (27.0-32.0); Mean Corpuscular Volume 86.1 fL (80-94); Mean Platelet Vol. 10.7 fl (6.2-12.0); Platelet Count 193 K/mm3 (150-450); RBC Distribution Width CV 14.4 % (11.6-14.6); RBC Distribution Width SD 45.4 fl (35.1-43.9); Red Blood Count 5.17 M/mm3 (4.6-6.2)
[2018-07-04 04:48] LABS: Scan Indicated on CBC? Y/N NO
[2018-07-04 05:06] LABS: AST(SGOT) 16 U/L (15-37); Alanine Aminotransfer ALT/SGPT 35 U/L (16-61); Alkaline Phosphatase 96 U/L (45-117); Anion Gap 7 (5-15); BUN 10 mg/dL (7-18); BUN/Creat Ratio 11.1 RATIO (10-20); Calcium,Total 7.9 mg/dL (8.5-10.1); Chloride 115 mmol/L (98-107); EST Glomerular Filtration Rate 111 mL/min (>60); Est Glom Filt Rate - Afr Amer 134 mL/min (>60); Glucose 96 mg/dL (74-106); Potassium 4.1 mmol/L (3.5-5.1); Sodium Level 145 mmol/L (136-145)
--- NOTE | 2018-07-04 05:55 | EKG12_ITS ---
Test Reason : AM EKG Blood Pressure : / mmHG Vent. Rate : 050 BPM Atrial Rate : 050 BPM P-R Int : 160 ms QRS Dur : 102 ms QT Int : 444 ms P-R-T Axes : 061 042 021 degrees QTc Int : 404 ms Sinus bradycardia Otherwise normal ECG When compared with ECG of 03-JUL-2018 17:52, MANUAL COMPARISON REQUIRED, DATA IS UNCONFIRMED Confirmed by AMADEO ROBIN ([id number]), clinical editor RANDAL SIMON ([id number]) on 07/08/2018 2:54:30 PM Referred By: Caridad Dsouza Confirmed By:AMADEO ROBIN
[2018-07-04] MEDS: Multivitamins,Ther W-Minerals Tablet 1 TABLET PO (08:56)
[2018-07-04] MEDS: Thiamine Hydrochloride 100 MG Tablet PO (08:56)
[2018-07-04] MEDS: Folic Acid 1 MG Tablet PO (08:56)
--- NOTE | 2018-07-04 09:24 | CASEMGMT ---
Addendum entered by Virginia Lord 07/04/18 10:40: Roula from crisis is here, spoke w/pt and spoke w/pt's family who is present. She is working on placement for pt. SW spoke w/Mary from our financial dept, pt's [employer] terminated on 06/26/18. SW called S, was informed pt was over income so insurance was termed. Pt can call [phone] to reapply. SW spoke w/pt, gave him this information. SW also left Mary in our financial dept a message informing her of the above information. KEV Cabello, BENEFITS COORDINATOR Original Note: As per RN, pt is ready to see crisis, and she called already, though has not heard back. SW called [facility], Roula should be here shortly. SW let RN and pt know. Pt's mother had called in asking when crisis is coming in, wanted to speak w/crisis or SW. SW spoke w/pt in regard to this, pt states he wants to keep his mother out of it. Pt's brother is in the room and states pt's mother is on her way here. SW explained that pt's mother can give information to this SW or to crisis, but without his permission we cannot give her information. Pt states understanding. SW will continue to follow and remains available. KEV Cabello, BENEFITS COORDINATOR
--- NOTE | 2018-07-04 10:07 | PCM.PN.HOSP ---
Patient Problems: Active and Suspected Problems Suicide attempt by drug ingestion (Acute) Subjective: Patient seen and examined. He was admitted at the suicidal attempt after he took BuSpar, Abilify and Acamprosate. This is his fifth suicidal attempt and states he tried to because he was having problems with his now ex-fianc?. Patient seen and examined. He states he feels better and denies any suicidal ideation. Denies any fever or chills, cough or chest pain, shortness of breath, abdominal pain, any diarrhea vomiting. Review of systems otherwise negative. Labs and vitals reviewed. Vitals/I&O's: Vital Signs Temp Pulse Resp BP Pulse Ox 97.8 F 58 L 12 131/86 H 99 07/04/18 08:00 07/04/18 08:00 07/04/18 08:00 07/04/18 08:00 07/04/18 09:00 Oxygen Delivery Method Room Air Weight: 211 lb 6.773 oz Body Mass Index (BMI) 31.0 Intake and Output for Last 24 Hours 07/02/18 07/03/18 07/04/18 23:59 23:59 23:59 Intake Total 2530 / 2530 1031 / 1031 Output Total 300 / 300 400 / 400 Balance 2230 / 2230 631 / 631 General: Alert, Oriented x3, Cooperative, No apparent distress HEENT: Atraumatic, PERRLA, EOMI, Normocephalic Oral: Moist Mucosa Neck: Supple, No JVD, Negative Carotid Bruits Lungs: Clear to auscultation, Normal air movement, No rhonchi, No wheeze, No rales Cardiovascular: Regular rate, Regular Rhythm, Normal S1, Normal S2, No murmurs Abdomen: Bowel Sounds Present, Soft, Non Tender, Non-Distended, No Hepato-splenomegaly Extremities: No clubbing, No cyanosis, No edema, Capillary Refill Less than 3 Seconds Skin: No rashes, No breakdown Musculoskeletal: No Tenderness to Palpation of Joints or Extremities Lymphatic: No Cervical, Supraclavicular, or Inguinal Adenopathy Neurological: Cranial nerves II-XII grossly intact, Neuro grossly intact, Motor Exam 5/5 strength throughout Psych/Mental Status: Normal Affect, Appropriate, Alert and oriented to time, place, person, mood and affect Laboratory Results 07/03/18 16:30: WBC 12.0 H, RBC 5.61, Hgb 15.7, Hct 47.4, MCV 84.5, MCH 28.0, MCHC 33.1, RDW 13.9, RDW Differential 42.9, Plt Count 233, MPV 10.3, Immature Gran % (Auto) 0.200, Neut % (Auto) 74.2 H, Lymph % (Auto) 16.0 L, [place] % (Auto) 7.8, Eos % (Auto) 1.5, Baso % (Auto) 0.3, Absolute Neuts (auto) 8.9 H, Absolute Lymphs (auto) 1.91, Total Counted Not Reportable 07/03/18 16:30: Sodium 140, Potassium 3.6, Chloride 105, Carbon Dioxide 27.0, Anion Gap 8, BUN 12, Creatinine 1.00, Estim Creat Clear Calc 111.15, Est GFR (MDRD) Af Amer 119, Est GFR (MDRD) Non-Af 98, BUN/Creatinine Ratio 12.0, Glucose 113 H, Calcium 8.5 07/03/18 16:30: Ethyl Alcohol < 3.0 07/03/18 16:30: Total Bilirubin 0.40, Direct Bilirubin 0.12, AST 29, ALT 44, Alkaline Phosphatase 121 H, Total Protein 7.5, Albumin 4.1, Globulin 3.4 07/03/18 16:30: Phosphorus 3.3, Magnesium 2.1 07/03/18 16:34: Urine Opiates Screen NEGATIVE, Urine Methadone Screen NEGATIVE, Ur Barbiturates Screen NEGATIVE, Ur Phencyclidine Scrn NEGATIVE, Ur Amphetamines Screen NEGATIVE, U Methamphetamin-MDMA NEGATIVE, U Benzodiazepines Scrn NEGATIVE, Urine Cocaine Screen NEGATIVE, U Cannabinoids Screen POSITIVE H, Ur Drug Screen Comment 07/04/18 04:30: WBC 7.0, RBC 5.17, Hgb 14.2, Hct 44.5, MCV 86.1, MCH 27.5, MCHC 31.9 L, RDW 14.4, RDW Differential 45.4 H, Plt Count 193, MPV 10.7 07/04/18 04:30: Sodium 145, Potassium 4.1, Chloride 115 H, Carbon Dioxide 23.0, Anion Gap 7, BUN 10, Creatinine 0.90, Estim Creat Clear Calc 123.50, Est GFR (MDRD) Af Amer 134, Est GFR (MDRD) Non-Af 111, BUN/Creatinine Ratio 11.1, Glucose 96, Calcium 7.9 L, Total Bilirubin 0.20, AST 16, ALT 35, Alkaline Phosphatase 96, Total Protein 6.0 L, Albumin 3.0 L, Globulin 3.0, Albumin/Globulin Ratio 1.0 Current Medications Al Hydroxide/Mg Hydroxide (Mylanta Ii) 30 ml PO Q6H PRN PRN PRN Reason: Gastric burning Folic Acid (Folic Acid) 1 mg PO DAILY@0800 [facility] Stop: 07/06/18 08:01 Last Admin: 07/04/18 08:56 Dose: 1 mg Sodium Chloride () 1,000 mls @ 150 mls/hr IV .Q6H40M [facility] Last Admin: 07/04/18 09:46 Dose: Not Given Lorazepam (Ativan) 2 mg PO Q2H PRN PRN; Protocol PRN Reason: CIWA score > 8 but <15 Lorazepam (Ativan) 2 mg PO UD PRN; Protocol PRN Reason: CIWA score >/=15. Lorazepam (Ativan) 2 mg IV Q2H PRN PRN; Protocol PRN Reason: CIWA score > 8 but <15 Lorazepam (Ativan) 2 mg IV UD PRN; Protocol PRN Reason: CIWA score >/=15. Magnesium Hydroxide (Milk Of Magnesia) 30 ml PO DAILY PRN PRN PRN Reason: Constipation Multivitamins/Minerals ([facility] Admin: 07/04/18 08:56 Dose: 1 tablet Ondansetron HCl (Zofran) 4 mg IV Q8H PRN PRN PRN Reason: NAUSEA Promethazine HCl (Phenergan) 12.5 mg IV Q6H PRN PRN PRN Reason: NAUSEA/VOMITING Sodium Chloride () 5 - 30 ml IV UD PRN PRN Reason: SALINE FLUSH Thiamine HCl (Vitamin B1) 100 mg PO BIDCM [facility] Stop: 07/06/18 17:01 Last Admin: 07/04/18 08:56 Dose: 100 mg Medical Necessity - Tobacco Use Smoking Status: Never smoker Tobacco Use: Chew Assessment/Plan All Active Problems Suicide attempt by drug ingestion (Acute) 1. Suicidal ideation due to major depression took overdose of acamprosate, Buspar and Abilify. Says he didnt take a whole lot of pills denies any suicidal ideation now. Received a dose of charcoal in the ED vitals are stable. This is his 5th suicide attempt urine tox showed marijuana currently medically stable. get mental health crises on board. 2. Alcohol abuse: drinks 4-12 beers daily; last drink was day before admission. Takes acamprosate to help him with quitting. Still drinks alcohol withdrawal protocol monitor CIWA score on folate and multivites 3. Polysubstance abuse: chews tobacco and uses marijuana. Counselled on quitting 4. Depression: on buspar. Buspar on hold for now o/a of suicidal attempt as stated above DVT prophylaxis: encourage ambulation Disposition: for mental health crisis evaluation to see if he can be admitted to psychiatric facility. Code Visit Inpatient E&M: 70887 Subs Hosp L3
--- NOTE | 2018-07-04 10:21 | PN_ITS ---
Patient Problems: Active and Suspected Problems Suicide attempt by drug ingestion (Acute) Subjective: Patient seen and examined. He was admitted at the suicidal attempt after he took BuSpar, Abilify and Acamprosate. This is his fifth suicidal attempt and states he tried to because he was having problems with his now ex-fianc?. Patient seen and examined. He states he feels better and denies any suicidal ideation. Denies any fever or chills, cough or chest pain, shortness of breath, abdominal pain, any diarrhea vomiting. Review of systems otherwise negative. Labs and vitals reviewed. Vitals/I&O's: Vital Signs Temp Pulse Resp BP Pulse Ox 97.8 F 58 L 12 131/86 H 99 07/04/18 08:00 07/04/18 08:00 07/04/18 08:00 07/04/18 08:00 07/04/18 09:00 Oxygen Delivery Method Room Air Weight: 211 lb 6.773 oz Body Mass Index (BMI) 31.0 Intake and Output for Last 24 Hours 07/02/18 07/03/18 07/04/18 23:59 23:59 23:59 Intake Total 2530 / 2530 1031 / 1031 Output Total 300 / 300 400 / 400 Balance 2230 / 2230 631 / 631 General: Alert, Oriented x3, Cooperative, No apparent distress HEENT: Atraumatic, PERRLA, EOMI, Normocephalic Oral: Moist Mucosa Neck: Supple, No JVD, Negative Carotid Bruits Lungs: Clear to auscultation, Normal air movement, No rhonchi, No wheeze, No rales Cardiovascular: Regular rate, Regular Rhythm, Normal S1, Normal S2, No murmurs Abdomen: Bowel Sounds Present, Soft, Non Tender, Non-Distended, No Hepato- splenomegaly Extremities: No clubbing, No cyanosis, No edema, Capillary Refill Less than 3 Seconds Skin: No rashes, No breakdown Musculoskeletal: No Tenderness to Palpation of Joints or Extremities Lymphatic: No Cervical, Supraclavicular, or Inguinal Adenopathy Neurological: Cranial nerves II-XII grossly intact, Neuro grossly intact, Motor Exam 5/5 strength throughout Psych/Mental Status: Normal Affect, Appropriate, Alert and oriented to time, place, person, mood and affect Laboratory Results 07/03/18 16:30: WBC 12.0 H, RBC 5.61, Hgb 15.7, Hct 47.4, MCV 84.5, MCH 28.0, MCHC 33.1, RDW 13.9, RDW Differential 42.9, Plt Count 233, MPV 10.3, Immature Gran % (Auto) 0.200, Neut % (Auto) 74.2 H, Lymph % (Auto) 16.0 L, [place] % (Auto) 7.8, Eos % (Auto) 1.5, Baso % (Auto) 0.3, Absolute Neuts (auto) 8.9 H, Absolute Lymphs (auto) 1.91, Total Counted Not Reportable 07/03/18 16:30: Sodium 140, Potassium 3.6, Chloride 105, Carbon Dioxide 27.0, Anion Gap 8, BUN 12, Creatinine 1.00, Estim Creat Clear Calc 111.15, Est GFR (MDRD) Af Amer 119, Est GFR (MDRD) Non-Af 98, BUN/Creatinine Ratio 12.0, Glucose 113 H, Calcium 8.5 07/03/18 16:30: Ethyl Alcohol < 3.0 07/03/18 16:30: Total Bilirubin 0.40, Direct Bilirubin 0.12, AST 29, ALT 44, Alkaline Phosphatase 121 H, Total Protein 7.5, Albumin 4.1, Globulin 3.4 07/03/18 16:30: Phosphorus 3.3, Magnesium 2.1 07/03/18 16:34: Urine Opiates Screen NEGATIVE, Urine Methadone Screen NEGATIVE, Ur Barbiturates Screen NEGATIVE, Ur Phencyclidine Scrn NEGATIVE, Ur Amphetamines Screen NEGATIVE, U Methamphetamin-MDMA NEGATIVE, U Benzodiazepines Scrn NEGATIVE, Urine Cocaine Screen NEGATIVE, U Cannabinoids Screen POSITIVE H, Ur Drug Screen Comment 07/04/18 04:30: WBC 7.0, RBC 5.17, Hgb 14.2, Hct 44.5, MCV 86.1, MCH 27.5, MCHC 31.9 L, RDW 14.4, RDW Differential 45.4 H, Plt Count 193, MPV 10.7 07/04/18 04:30: Sodium 145, Potassium 4.1, Chloride 115 H, Carbon Dioxide 23.0, Anion Gap 7, BUN 10, Creatinine 0.90, Estim Creat Clear Calc 123.50, Est GFR (MDRD) Af Amer 134, Est GFR (MDRD) Non-Af 111, BUN/Creatinine Ratio 11.1, Glucose 96, Calcium 7.9 L, Total Bilirubin 0.20, AST 16, ALT 35, Alkaline Phosphatase 96, Total Protein 6.0 L, Albumin 3.0 L, Globulin 3.0, Albumin/Globulin Ratio 1.0 Current Medications Al Hydroxide/Mg Hydroxide (Mylanta Ii) 30 ml PO Q6H PRN PRN PRN Reason: Gastric burning Folic Acid (Folic Acid) 1 mg PO DAILY@0800 ON LICENSE OF [facility] Stop: 07/06/18 08:01 Last Admin: 07/04/18 08:56 Dose: 1 mg Sodium Chloride () 1,000 mls @ 150 mls/hr IV .Q6H40M ON LICENSE OF [facility] Last Admin: 07/04/18 09:46 Dose: Not Given Lorazepam (Ativan) 2 mg PO Q2H PRN PRN; Protocol PRN Reason: CIWA score > 8 but <15 Lorazepam (Ativan) 2 mg PO UD PRN; Protocol PRN Reason: CIWA score >/=15. Lorazepam (Ativan) 2 mg IV Q2H PRN PRN; Protocol PRN Reason: CIWA score > 8 but <15 Lorazepam (Ativan) 2 mg IV UD PRN; Protocol PRN Reason: CIWA score >/=15. Magnesium Hydroxide (Milk Of Magnesia) 30 ml PO DAILY PRN PRN PRN Reason: Constipation Multivitamins/Minerals ([facility]it[facility] With Minerals) [facility] Last Admin: 07/04/18 08:56 Dose: 1 tablet Ondansetron HCl (Zofran) 4 mg IV Q8H PRN PRN PRN Reason: NAUSEA Promethazine HCl (Phenergan) 12.5 mg IV Q6H PRN PRN PRN Reason: NAUSEA/VOMITING Sodium Chloride () 5 - 30 ml IV UD PRN PRN Reason: SALINE FLUSH Thiamine HCl (Vitamin B1) 100 mg PO BIDCM ON LICENSE OF [facility] Stop: 07/06/18 17:01 Last Admin: 07/04/18 08:56 Dose: 100 mg Medical Necessity - Tobacco Use Smoking Status: Never smoker Tobacco Use: Chew Assessment/Plan All Active Problems Suicide attempt by drug ingestion (Acute) 1. Suicidal ideation due to major depression * took overdose of acamprosate, Buspar and Abilify. Says he didnt take a whole lot of pills * denies any suicidal ideation now. Received a dose of charcoal in the ED * vitals are stable. This is his 5th suicide attempt * urine tox showed marijuana * currently medically stable. * get mental health crises on board. * 2. Alcohol abuse: * drinks 4-12 beers daily; last drink was day before admission. Takes acamprosate to help him with quitting. Still drinks * alcohol withdrawal protocol * monitor CIWA score * on folate and multivites * 3. Polysubstance abuse: chews tobacco and uses marijuana. Counselled on quitting 4. Depression: on buspar. Buspar on hold for now o/a of suicidal attempt as stated above DVT prophylaxis: encourage ambulation Disposition: for mental health crisis evaluation to see if he can be admitted to psychiatric facility. Code Visit Inpatient E&M: 63655 Subs Hosp L3
--- NOTE | 2018-07-04 14:10 | DCINST_ITS ---
- Discharge Diagnoses Current Active Problems: Current Active and Chronic Problems Suicide attempt by drug ingestion (Acute) Alcohol abuse (Chronic) Major depression (Chronic) Nicotine abuse (Chronic) Marijuana abuse (Chronic) You will use the following diet at home:: Regular Your food should be the consistency of: Regular Discharge Activity: Return to Normal Activity Weight Bearing Status: Weight bearing as tolerated Allergies/Adverse Reactions: Allergies bee venom protein (honey bee) Allergy (Verified 07/03/18 16:09) Anaphylaxis Medications to take at Discharge Aripiprazole [Abilify] 10 mg PO DAILY 03/13/17 Acamprosate Calcium 666 mg PO TID 06/11/18 busPIRone [Buspar] 20 mg PO TID 06/11/18 Naproxen [Naprosyn] 500 mg PO BID PRN #20 tab 06/12/18 Primary Care Physician: Cecilio Waldrop III, MD [Primary Care Provider] - Please follow up with your Primary Care Physician in: 1-2 weeks Test Results: Test results from this visit will be discussed in further detail at your follow- up appointment, if applicable. Proposed Discharge Date: 07/04/18
--- NOTE | 2018-07-04 14:11 | DS.PCM_ITS ---
Discharge Date and Diagnosis - Problem List Patient Problems: Active and Suspected Problems Suicide attempt by drug ingestion (Acute) Date of Admission: 07/03/18 Date of Discharge: 07/04/18 - Primary Discharge Diagnosis Active and Suspected Problems Suicide attempt by drug ingestion (Acute) - Secondary Discharge Diagnosis Chronic Problems Alcohol abuse (Chronic) Major depression (Chronic) Nicotine abuse (Chronic) Marijuana abuse (Chronic) Hospital Course and Treatment Consultations 07/04/18 08:09 Consult: Mental Health/Crisis Routine Reason for consult?: Suicide attempt Date Notified:: 07/04/18 Time notified:: 08:05 Operations: None Procedures: None Summary of Care Provided: The patient is a 23 year old M with past medical history of alcohol abuse, depression and anxiety with 4 previous suicide attempts and nicotine abuse. He was admitted through the ED on 07/03/2018 with a complaint of suicide attempt after ingestion of a compensate, Abilify and BuSpar. He said he did this because of relationship problems with his now ex-fianc?. He was brought in by the paramedics and administer charcoal in the ED. He was admitted to the ICU. Labs were unremarkable and urine tox screen was positive for cannabinoids. Serum alcohol level was less than 3. Was admitted and managed for suicidal attempt. Patient remained stable and improved. He was reviewed by mental health crisis and was deemed ready for transfer to [facility]. He was discharged to this facility on 07/04/2018 Patient seen and examined prior to discharge. He had no complaints and felt well. He denied any fever or chills, any cough or chest pain, shortness of breath, abdominal pain, any diarrhea vomiting. He denied any active suicidal or homicidal ideations. Review of systems otherwise negative. o/e: Vital Signs Height 5 ft 8 in Weight: 211 lb 6.773 oz Weight in Pounds 211.4 lbs Pulse Ox 100 Temperature 98.9 F Pulse Rate 81 Respiratory Rate 17 Blood Pressure [BP] 121/76 Blood Pressure 135/87 Blood Pressure Position [BP] Left Lateral Blood Pressure Position Semi-Fowlers General: Alert, Oriented x3, Cooperative, No apparent distress HEENT: Atraumatic, PERRLA, EOMI, Normocephalic Oral: Moist Mucosa Neck: Supple, No JVD, Negative Carotid Bruits Lungs: Clear to auscultation, Normal air movement, No rhonchi, No wheeze, No rales Cardiovascular: Regular rate, Regular Rhythm, Normal S1, Normal S2, No murmurs Abdomen: Bowel Sounds Present, Soft, Non Tender, Non-Distended, No Hepato- splenomegaly Extremities: No clubbing, No cyanosis, No edema, Capillary Refill Less than 3 Seconds Skin: No rashes, No breakdown Musculoskeletal: No Tenderness to Palpation of Joints or Extremities Lymphatic: No Cervical, Supraclavicular, or Inguinal Adenopathy Neurological: Cranial nerves II-XII grossly intact, Neuro grossly intact, Motor Exam 5/5 strength throughout Psych/Mental Status: Normal Affect, Appropriate, Alert and oriented to time, place, person, mood and affect [] Patient Problems: Active and Suspected Problems Suicide attempt by drug ingestion (Acute) - Physical Exam Vital Signs Temp Pulse Resp BP Pulse Ox 98.9 F 81 17 135/87 H 100 07/04/18 14:00 07/04/18 14:00 07/04/18 14:00 07/04/18 14:00 07/04/18 14:00 Oxygen Delivery Method Room Air Weight: 211 lb 6.773 oz Body Mass Index (BMI) 31.0 Intake and Output for Last 24 Hours 07/02/18 07/03/18 07/04/18 23:59 23:59 23:59 Intake Total 2530 / 2530 2343 / 2343 Output Total 300 / 300 1800 / 1800 Balance 2230 / 2230 543 / 543 Laboratory Tests Past 24 Hrs 07/03/18 07/03/18 07/03/18 16:30 16:30 16:30 WBC 12.0 H RBC 5.61 Hgb 15.7 Hct 47.4 MCV 84.5 MCH 28.0 MCHC 33.1 RDW 13.9 RDW Differential 42.9 Plt Count 233 MPV 10.3 Immature Gran % (Auto) 0.200 Neut % (Auto) 74.2 H Lymph % (Auto) 16.0 L [place] % (Auto) 7.8 Eos % (Auto) 1.5 Baso % (Auto) 0.3 Absolute Neuts (auto) 8.9 H Absolute Lymphs (auto) 1.91 Total Counted Not Reportable Sodium 140 Potassium 3.6 Chloride 105 Carbon Dioxide 27.0 Anion Gap 8 BUN 12 Creatinine 1.00 Estim Creat Clear Calc 111.15 Est GFR (MDRD) Af Amer 119 Est GFR (MDRD) Non-Af 98 BUN/Creatinine Ratio 12.0 Glucose 113 H Calcium 8.5 Phosphorus Magnesium Total Bilirubin Direct Bilirubin AST ALT Alkaline Phosphatase Total Protein Albumin Globulin Albumin/Globulin Ratio Urine Opiates Screen Urine Methadone Screen Ur Barbiturates Screen Ur Phencyclidine Scrn Ur Amphetamines Screen U Methamphetamin-MDMA U Benzodiazepines Scrn Urine Cocaine Screen U Cannabinoids Screen Ur Drug Screen Comment Ethyl Alcohol < 3.0 07/03/18 07/03/18 07/03/18 16:30 16:30 16:34 WBC RBC Hgb Hct MCV MCH MCHC RDW RDW Differential Plt Count MPV Immature Gran % (Auto) Neut % (Auto) Lymph % (Auto) [place] % (Auto) Eos % (Auto) Baso % (Auto) Absolute Neuts (auto) Absolute Lymphs (auto) Total Counted Sodium Potassium Chloride Carbon Dioxide Anion Gap BUN Creatinine Estim Creat Clear Calc Est GFR (MDRD) Af Amer Est GFR (MDRD) Non-Af BUN/Creatinine Ratio Glucose Calcium Phosphorus 3.3 Magnesium 2.1 Total Bilirubin 0.40 Direct Bilirubin 0.12 AST 29 ALT 44 Alkaline Phosphatase 121 H Total Protein 7.5 Albumin 4.1 Globulin 3.4 Albumin/Globulin Ratio Urine Opiates Screen NEGATIVE Urine Methadone Screen NEGATIVE Ur Barbiturates Screen NEGATIVE Ur Phencyclidine Scrn NEGATIVE Ur Amphetamines Screen NEGATIVE U Methamphetamin-MDMA NEGATIVE U Benzodiazepines Scrn NEGATIVE Urine Cocaine Screen NEGATIVE U Cannabinoids Screen POSITIVE H Ur Drug Screen Comment Ethyl Alcohol 07/04/18 07/04/18 04:30 04:30 WBC 7.0 RBC 5.17 Hgb 14.2 Hct 44.5 MCV 86.1 MCH 27.5 MCHC 31.9 L RDW 14.4 RDW Differential 45.4 H Plt Count 193 MPV 10.7 Immature Gran % (Auto) Neut % (Auto) Lymph % (Auto) [place] % (Auto) Eos % (Auto) Baso % (Auto) Absolute Neuts (auto) Absolute Lymphs (auto) Total Counted Sodium 145 Potassium 4.1 Chloride 115 H Carbon Dioxide 23.0 Anion Gap 7 BUN 10 Creatinine 0.90 Estim Creat Clear Calc 123.50 Est GFR (MDRD) Af Amer 134 Est GFR (MDRD) Non-Af 111 BUN/Creatinine Ratio 11.1 Glucose 96 Calcium 7.9 L Phosphorus Magnesium Total Bilirubin 0.20 Direct Bilirubin AST 16 ALT 35 Alkaline Phosphatase 96 Total Protein 6.0 L Albumin 3.0 L Globulin 3.0 Albumin/Globulin Ratio 1.0 Urine Opiates Screen Urine Methadone Screen Ur Barbiturates Screen Ur Phencyclidine Scrn Ur Amphetamines Screen U Methamphetamin-MDMA U Benzodiazepines Scrn Urine Cocaine Screen U Cannabinoids Screen Ur Drug Screen Comment Ethyl Alcohol Discharge Diet: No Restrictions Discharge Activity: Return to Normal Activity Weight Bearing Status: Weight bearing as tolerated Home Medications: Medications to take at Discharge Aripiprazole [Abilify] 10 mg PO DAILY 03/13/17 Acamprosate Calcium 666 mg PO TID 06/11/18 busPIRone [Buspar] 20 mg PO TID 06/11/18 Naproxen [Naprosyn] 500 mg PO BID PRN #20 tab 06/12/18 Primary Care Physician: Cecilio Waldrop III, MD [Primary Care Provider] - Please follow up with your Primary Care Physician in: 1-2 weeks Disposition: Psych Hospital or Unit - [facility] Minutes spent on discharge:: 40 Patient Condition:: Stable Medical Necessity - Tobacco Use Smoking Status: Never smoker Tobacco Use: Chew Meaningful Use Info Meaningful Use Diagnoses (Choose all that apply): None applicable Code Visit Inpatient E&M: 13868 Disch Hosp
== END 2018-07-04 15:28 | DRG 918 ==
LOC: ED 16:41 → ICU 18:32
PROVIDERS: Admitting Provider Family Medicine Geriatric Medicine; Emergency Provider Emergency Medicine; Family Provider Family Medicine; PCP Family Medicine; Referring Provider Family Medicine; Visit Provider Student in an Organized Health Care Education/Training Program
DX: T50.6X2A Poisoning by antidotes and chelating agents, intentional self-harm, initial encounter (principal); T43.592A Poisoning by other antipsychotics and neuroleptics, intentional self-harm, initial encounter; F10.10 Alcohol abuse, uncomplicated; Z91.5 Personal history of self-harm; F32.9 Major depressive disorder, single episode, unspecified; Z72.0 Tobacco use
CPT/HCPCS: 80048; 80053; 80076; 80307; 80320; 83735; 84100; 85025; 85027; 93005; 99284; J7030; A4216; G0480

== ENCOUNTER 2018-12-10 22:47 | Emergency (ER) | payer MEDICAID, SELFPAY ==
[2018-12-10 22:47] VITALS: BP 134/81; PULSE 85; RESP 14; TEMP 36.6; O2SAT 97; BMI 32.6
--- NOTE | 2018-12-11 01:03 | ED.DCSUM_ITS ---
- ER Visit Summary Date of Service: 12/11/18 Chief Complaint: Right leg pain History of Present Illness: The patient is a 23 M who presents with right leg pain. This been going on for 3 days. He describes it as sharp and shooting from his hip down to his foot. This is worse with walking upstairs. He denies any back pain. He denies urinary retention or fecal incontinence. He denies fevers or abdominal pain. No history of back surgery. He has not tried any medications at home. Physical Examination: Afebrile vitals normal Moist mucous membranes Heart regular No respiratory distress Abdomen soft nontender 5 out of 5 dorsiflexion, plantarflexion, extensor hallucis longus, easily palpable symmetric dorsalis pedis pulses normal sensation to light touch negative straight leg raise bilaterally Extremities nontender without edema Test Results: Not indicated Emergency Department Course and Treatment: History and presentation is consistent with sciatica/lumbar radiculopathy. He was given naproxen here as well as a prescription for the same. He was advised to follow-up with his primary care physician and was discharged home. Treatment Plan: [] Disposition: Discharge Impression: Sciatica This note was generated with [employer] dictation software. It may contain incorrect words, spelling, and punctuation that were not noted in review of the chart prior to signing ED Disposition - Plan for ED Patient: Referrals: Cecilio Waldrop III, MD [Primary Care Provider] -
--- NOTE | 2018-12-11 01:03 | ED.DEP ---
ED Disposition - Plan for ED Patient: Instructions: ED Sciatica Prescriptions: Naproxen [Naprosyn] 500 mg PO BID #20 tab Referrals: Cecilio Waldrop III, MD [Primary Care Provider] -
[2018-12-11] MEDS: Naproxen 500 MG Tablet PO (01:10)
[2018-12-11 01:11] VITALS: BP 129/83; PULSE 87; RESP 15; O2SAT 99
== END 2018-12-11 01:11 | disposition short-term general hospital (02) ==
PROVIDERS: Emergency Provider Emergency Medicine; Family Provider Family Medicine; PCP Family Medicine
DX: M54.30 Sciatica, unspecified side (principal); Z72.0 Tobacco use
CPT/HCPCS: 99283

== ENCOUNTER 2019-01-08 03:38 | Emergency (ER) | payer MEDICAID, SELFPAY ==
[2019-01-08 03:39] VITALS: BP 138/83; PULSE 86; RESP 16; TEMP 36.8; O2SAT 99; BMI 35.0
--- NOTE | 2019-01-08 03:55 | ED.DCSUM_ITS ---
- ER Visit Summary Date of Service: 01/08/19 Chief Complaint: Chronic and progressive pain History of Present Illness: The patient is a 23 M who presents with chronic and progressive pain in his right hip for years. There is no acute worsening or change in symptoms tonight. He denies any recent fall injury or acute worsening of symptoms. He has already seen his primary care physician for this. He has been referred to orthopedics and also seeing orthopedics. He has been referred to physical therapy. He otherwise denies fevers chest pain shortness of breath nausea vomiting. Physical Examination: Afebrile vitals normal No distress Heart regular rate and rhythm Lungs clear Active full range of motion of the hip he is neurovascularly intact distally with brisk capillary refill normal sensation 5 out of 5 dorsiflexion, plantarflexion, extensor hallucis longus Test Results: Not indicated Emergency Department Course and Treatment: Patient presents with chronic pain in his right hip for years without any acute change in symptoms. He has already seen his primary care physician and orthopedics for this. He is already on anti-inflammatories. I explained that there is no indication for further emergent diagnostics or intervention here in the emergency department and that I do not really have anything else to offer him. He was advised to follow-up as an outpatient. Patient discharged. Treatment Plan: [] Disposition: Discharge Impression: Chronic right hip pain This note was generated with [employer] dictation software. It may contain incorrect words, spelling, and punctuation that were not noted in review of the chart prior to signing ED Disposition - Plan for ED Patient: Referrals: Cecilio Waldrop III, MD [Primary Care Provider] -
--- NOTE | 2019-01-08 03:55 | ED.DEP ---
ED Disposition - Plan for ED Patient: Instructions: ED Chronic Pain Management Referrals: Cecilio Waldrop III, MD [Primary Care Provider] -
[2019-01-08 04:02] VITALS: RESP 16
== END 2019-01-08 04:02 | disposition home or self-care (01) ==
LOC: ED 04:02
PROVIDERS: Emergency Provider Emergency Medicine; Family Provider Family Medicine; PCP Family Medicine
DX: M25.551 Pain in right hip (principal); G89.29 Other chronic pain; Z72.0 Tobacco use
CPT/HCPCS: 99282

== ENCOUNTER 2019-04-22 12:10 | Emergency (ER) | payer MEDICAID, SELFPAY ==
[2019-04-22 12:12] VITALS: BP 125/70; PULSE 74; RESP 16; TEMP 36.6; O2SAT 97; BMI 35.4
--- NOTE | 2019-04-22 12:33 | VDLE_ITS ---
Reason For Study: RLE SWELLING RIGHT GSV is normal. FV is compressible, spontaneous, phasic, competent and demonstrates normal augmentation. POP V is compressible, spontaneous, phasic, competent and demonstrates normal augmentation. T/P Trunk is compressible. PTV is compressible. RT PerV is compressible. PROX & MID FV are compressible, spontaneous, phasic, competent and demonstrates normal augmentation. Distal FV demonstrates partial compression, decreased flow with hyperechoic echoes noted in a small segment. Procedure Exam performed portable in ED. The exam was diagnostic. A preliminary report was called and/or faxed to ED. Interpretation Summary Chronic venous changes are noted in the right distal femoral vein, which is partially compressible and demonstrates diminished flow and hyperechoic echogenicity. The remainder of the right lower extremity deep venous system is patent and compressible. Valvular competence appears intact within the proximal deep venous system on the right . The right great saphenous vein appears patent and compressible segmentally. Ordering Physician: Kendall Kasper Referring Physician: Cecilio Waldrop Performed By: Shu Martinez, JOVANNI, RVT
--- NOTE | 2019-04-22 12:39 | ED.VISSUMM ---
- ER Visit Summary Date of Service: 04/22/19 Chief Complaint: Right Lower leg pain and swelling History of Present Illness: The patient is a 24 M slid into a base playing ball on Sunday. Was taken to [facility] was diagnosed with a right distal fibula Krishnan B fracture. Was placed in orthopedic boot. Is been icing and elevating. He has been walking on it. He has been using crutches. Says now is more pain in the foot and swelling in the right leg up to his knee. No history of DVT or PE no chest pain or shortness of breath. He is concerned due to the increasing pain and swelling. Physical Examination: Young male no acute distress. Vital signs stable afebrile. HEENT exam unremarkable. Neck nontender. Lungs clear to auscultation. Heart regular rate and rhythm. Chest nontender. Abdomen soft nontender. Extremities moves all 4. Neurovascular intact. Right hip and knee are nontender. His right proximal fibula is mild tenderness. No gross bony deformity. At the ankle there is swelling and edema with distal fibular tenderness. DP pulses intact. Achilles tendon appears to be intact. His foot there is swelling and bruising bilaterally. He is able to wiggle his toes. There is no gross bony deformity of the foot. The foot is diffusely tender. Normal cap refill intact sensation. Skin is intact. Neurologically is awake and alert. Test Results: Right foot x-ray 3 view shows no acute abnormality. But there is obvious evidence of the right distal fibula fracture that was previously diagnosed. Right tib-fib x-ray 2 views shows no acute abnormality. Prior right distal fracture and previously diagnosed noted. Right lower extremity noninvasive study no DVT. Emergency Department Course and Treatment: Diagnosis post right ankle fracture swelling. Patient had his copies of his x-rays with him he is a nondisplaced distal fibula fracture. He is concerned as he has no pain in the foot and higher up in the lower leg and concern for possible blood clot. Repeat exam doing well for Treatment Plan: Continue ice and elevation. Continue anti-inflammatories. Follow-up with the supervisor heavy equipment that he is going to see at the [facility]. Disposition: Discharge Impression: Status post recent right distal fibula fracture with post fracture swelling This note was generated with [employer] software. It may contain incorrect words, spelling, and punctuation that were not noted in review of the chart prior to signing ED Disposition - Plan for ED Patient: Referrals: Cecilio Waldrop III, MD [Primary Care Provider] -
--- NOTE | 2019-04-22 12:52 | RAD_ITS ---
STUDY: X-RAY - RIGHT FOOT CLINICAL: Male, 24 years old. Right fibular fracture TECHNIQUE: 3 view(s) of the foot. COMPARISON: None. FINDINGS: No fracture or dislocation. The joint spaces are maintained. The soft tissue structures are unremarkable. RAD/Foot min 3 Views IMPRESSION: Normal x-ray examination of the foot. Electronically Signed: Nikky Simon, at 13:11 EDT Tel , Service support ,
--- NOTE | 2019-04-22 12:52 | RAD_ITS ---
STUDY: X-RAY - RIGHT TIBIA AND FIBULA REASON FOR EXAM: Male, 24 years old. Right fibula fracture TECHNIQUE: 2 view(s) of the tibia and fibula were obtained. COMPARISON: None. FINDINGS: Normal visualized tibia. There is an oblique or spiral fracture of the distal fibula, the distal extent is at the level of the talar dome (type B Krishnan classification). The ankle mortise is intact. The remaining osseous structures are intact. The soft tissue structures are unremarkable. RAD/Tibia & Fibula 2 Views IMPRESSION: Type B Krishnan classification distal fibula fracture. The ankle mortise is intact. Electronically Signed: Nikky Simon, at 13:15 EDT Tel , Service support ,
--- NOTE | 2019-04-22 15:09 | ED.DEP ---
ED Disposition - Plan for ED Patient: Disposition: Home or Assisted Living Instructions: ANKLE FRACTURE (Distal Fibula), closed Referrals: Cecilio Waldrop III, MD [Primary Care Provider] - As Needed Additional Instructions: Continue to ice and elevate your ankle. You have a right distal fibula ankle fracture. No new broken bones were found today on the additional x-rays that were obtained. Also the ultrasound showed no signs of a blood clot. Follow-up with your for your ankle fracture.
[2019-04-22 15:14] VITALS: BP 109/77; PULSE 62; RESP 15; O2SAT 98
== END 2019-04-22 15:15 | disposition home or self-care (01) ==
PROVIDERS: Emergency Provider Emergency Medicine; Family Provider Family Medicine; PCP Family Medicine
DX: S82.831A Other fracture of upper and lower end of right fibula, initial encounter for closed fracture (principal); X58.XXXA Exposure to other specified factors, initial encounter; Y93.64 Activity, baseball; F32.9 Major depressive disorder, single episode, unspecified; F12.90 Cannabis use, unspecified, uncomplicated; Z79.899 Other long term (current) drug therapy; Z72.0 Tobacco use
CPT/HCPCS: 73590; 73630; 93971; 99284